=== PATIENT | female | born 1965 | race Caucasian/White ===

== ENCOUNTER 2018-05-13 10:18 | Emergency (ER) | payer OTHER ==
[~2018-05-13] VITALS: Ht 157.5 cm; Wt 56.7 kg
[~2018-05-13 10:18] MED LIST: ALBU3IS; ALBU90OI INH; Accuneb1.25 MG/3 NEB
[2018-05-13] MEDS ORDERED: CEPH500 PO (11:08)
[2018-05-13] MEDS ORDERED: Bactrim Ds Tab1 EACH PO (11:08)
[2018-05-13] MEDS ORDERED: HYDR1TAB94 PO (11:08)
== END 2018-05-13 11:15 | disposition home or self-care (01) ==
LOC: ER 10:18
DX: L02.415 Cutaneous abscess of right lower limb (principal)
CPT/HCPCS: 10061; 99282-25

== ENCOUNTER 2018-07-30 14:08 | Emergency (ER) | payer OTHER ==
[~2018-07-30] VITALS: Ht 157.5 cm; Wt 56.7 kg
[~2018-07-30 14:08] MED LIST changes: +Bactrim Ds Tab1 EACH PO; +CEPH500 PO; +HYDR1TAB94 PO
[2018-07-30] MEDS ORDERED: Bactrim Ds Tab1 EACH PO (15:46)
[2018-07-30] MEDS ORDERED: CEPH500 PO (15:46)
== END 2018-07-30 15:51 | disposition home or self-care (01) ==
LOC: ER 14:08
DX: K13.0 Diseases of lips (principal); L02.01 Cutaneous abscess of face; J45.909 Unspecified asthma, uncomplicated; F17.210 Nicotine dependence, cigarettes, uncomplicated; Z79.899 Other long term (current) drug therapy
CPT/HCPCS: 99283

== ENCOUNTER 2018-08-17 18:05 | Emergency (ER) | payer OTHER ==
[~2018-08-17] VITALS: Ht 157.5 cm; Wt 57.6 kg
[2018-08-17] MEDS ORDERED: CEPH500 PO (18:40)
[2018-08-17] MEDS ORDERED: Bactrim Ds Tab1 EACH PO (18:40)
== END 2018-08-17 18:57 | disposition home or self-care (01) ==
LOC: ER 18:05
DX: L03.115 Cellulitis of right lower limb (principal); J45.909 Unspecified asthma, uncomplicated; F17.210 Nicotine dependence, cigarettes, uncomplicated
CPT/HCPCS: 99283

== ENCOUNTER → 2018-08-18 | Outpatient (CLI) | payer OTHER | END | disposition home or self-care (01) | LOC: LAB 17:50 → LAB SHORT 17:50 | DX: L98.9 Disorder of the skin and subcutaneous tissue, unspecified (principal) | CPT/HCPCS: 87070; 87077; 87186; 87205 ==

== ENCOUNTER 2018-11-11 20:31 | Emergency (ER) | payer OTHER ==
[~2018-11-11] VITALS: Ht 157.5 cm; Wt 56.7 kg
[2018-11-11] MEDS ORDERED: CEPH500 PO (22:00)
[2018-11-11] MEDS ORDERED: Bactrim Ds Tab1 EACH PO (22:00)
== END 2018-11-11 22:10 | disposition home or self-care (01) ==
LOC: ER 20:31
DX: L02.416 Cutaneous abscess of left lower limb (principal); Z79.899 Other long term (current) drug therapy; J45.909 Unspecified asthma, uncomplicated; F17.210 Nicotine dependence, cigarettes, uncomplicated
CPT/HCPCS: 99282

== ENCOUNTER 2019-01-12 22:02 | Emergency (ER) | payer OTHER ==
[~2019-01-12] VITALS: Ht 157.5 cm; Wt 59.0 kg
[2019-01-12] MEDS ORDERED: Vibramycin100 MG PO (22:35)
== END 2019-01-12 22:43 | disposition home or self-care (01) ==
LOC: ER 22:02
DX: A49.02 Methicillin resistant Staphylococcus aureus infection, unspecified site (principal); L98.9 Disorder of the skin and subcutaneous tissue, unspecified; J45.909 Unspecified asthma, uncomplicated; F17.210 Nicotine dependence, cigarettes, uncomplicated
CPT/HCPCS: 99283

== ENCOUNTER 2019-02-03 16:08 | Emergency (ER) | payer OTHER ==
[~2019-02-03] VITALS: Ht 157.5 cm; Wt 56.7 kg
[~2019-02-03 16:08] MED LIST changes: +Vibramycin100 MG PO
[2019-02-03] MEDS ORDERED: Bactrim Ds Tab1 EACH PO (16:23)
== END 2019-02-03 16:23 | disposition home or self-care (01) ==
LOC: ER 16:08
DX: L08.9 Local infection of the skin and subcutaneous tissue, unspecified (principal); F17.210 Nicotine dependence, cigarettes, uncomplicated
CPT/HCPCS: 99282

== ENCOUNTER 2019-05-18 09:09 | Emergency (ER) | payer OTHER ==
[~2019-05-18] VITALS: Ht 157.5 cm; Wt 59.0 kg
[2019-05-18] MEDS ORDERED: TIOT18 INH (09:35)
[2019-05-18 09:56] LABS: BASOPHILS ABSOLUTE AUTO 0.12 K/mm3 (0.00-0.23); BASOPHILS PERCENT AUTO 2 % (0-2); EOSINOPHILS ABSOLUTE AUTO 0.82 K/mm3 (0.00-0.68); EOSINOPHILS PERCENT AUTO 11 % (0-6); Hematocrit 42.9 % (33.0-51.0); Hemoglobin 14.2 g/dL (11.5-16.0); IMMATURE GRAN ABSOLUTE AUTO 0.01 K/mm3 (0.00-0.10); IMMATURE GRAN PERCENT AUTO 0 % (0-1); LYMPHOCYTES ABSOLUTE AUTO 2.24 K/mm3 (0.84-5.20); LYMPHOCYTES PERCENT AUTO 29 % (21-46); MONOCYTES ABSOLUTE AUTO 0.45 K/mm3 (0.16-1.47); MONOCYTES PERCENT AUTO 6 % (4-13); Mean Corpuscular HGB 29.3 pg (26.0-34.0); Mean Corpuscular HGB Conc 33.1 g/dL (31.5-36.5); Mean Corpuscular Volume 89 fL (80-100); Mean Platelet Volume 9.4 fL (9.1-12.4); NEUTROPHILS ABSOLUTE AUTO 4.16 K/mm3 (1.96-9.15); NEUTROPHILS PERCENT AUTO 53 % (41-73); Platelet Count 435 K/mm3 (150-400); RDW Coefficient Variation 14.3 % (11.7-14.2); RDW Standard Deviation 45.8 fL (35.1-46.3); Red Blood Cell Count 4.85 M/mm3 (3.80-5.20)
[2019-05-18 10:20] LABS: Alanine Aminotransfer (ALT/SGP 24 U/L (12-78); Albumin, Blood 3.8 g/dL (3.4-5.0); Albumin/Globulin Ratio 0.9 (0.8-1.8); Alk Phos 101 U/L (50-136); Anion Gap 6 mmol/L (6-16); Aspartate Aminotrans (AST/SGOT 20 U/L (12-37); Bilirubin, Total 0.4 mg/dL (0.1-1.0); Blood Urea Nitrogen 11 mg/dL (8-24); Bun/Creatinine Ratio 16.2 (12.0-20.0); CO2, Blood 27 mmol/L (21-32); Calcium, Blood 9.1 mg/dL (8.5-10.1); Chloride, Blood 105 mmol/L (98-108); Creatinine, Blood 0.68 mg/dL (0.40-1.00); Globulin, Blood 4.1 g/dL (2.2-4.0); Glomerular Filtration Rate >60 (60-); Glucose, Blood 93 mg/dL (70-99); Sodium, Blood 138 mmol/L (136-145); Total Protein, Blood 7.9 g/dL (6.4-8.2); Troponin I <0.015 ng/mL (0.000-0.040)
[2019-05-18] MEDS ORDERED: Ventolin/Prove6.7 GM INH (10:58)
[2019-05-18] MEDS ORDERED: METPRE4DP PO (10:58)
== END 2019-05-18 11:24 | disposition home or self-care (01) ==
LOC: ER 09:09
PROVIDERS: Physician Assistant
DX: J45.901 Unspecified asthma with (acute) exacerbation (principal); F17.210 Nicotine dependence, cigarettes, uncomplicated
CPT/HCPCS: 36415; 71046; 80053; 84484; 85025; 93005; 93010; 94640; 96365-59; 96375-59; 99285-25; J2930; J3475

== ENCOUNTER 2019-10-22 13:13 | Emergency (ER) | payer OTHER ==
[~2019-10-22] VITALS: Ht 157.5 cm; Wt 63.5 kg
[~2019-10-22 13:13] MED LIST changes: +METPRE4DP PO; +TIOT18 INH; +Ventolin/Prove6.7 GM INH
[2019-10-22] MEDS ORDERED: IBUP400 (13:29)
[2019-10-22 15:16] LABS: BASOPHILS ABSOLUTE AUTO 0.13 K/mm3 (0.00-0.23); BASOPHILS PERCENT AUTO 1 % (0-2); EOSINOPHILS ABSOLUTE AUTO 1.29 K/mm3 (0.00-0.68); EOSINOPHILS PERCENT AUTO 12 % (0-6); Hematocrit 37.3 % (33.0-51.0); Hemoglobin 12.4 g/dL (11.5-16.0); IMMATURE GRAN ABSOLUTE AUTO 0.04 K/mm3 (0.00-0.10); IMMATURE GRAN PERCENT AUTO 0 % (0-1); LYMPHOCYTES ABSOLUTE AUTO 2.63 K/mm3 (0.84-5.20); LYMPHOCYTES PERCENT AUTO 24 % (21-46); MONOCYTES ABSOLUTE AUTO 0.69 K/mm3 (0.16-1.47); MONOCYTES PERCENT AUTO 6 % (4-13); Mean Corpuscular HGB 29.7 pg (26.0-34.0); Mean Corpuscular HGB Conc 33.2 g/dL (31.5-36.5); Mean Corpuscular Volume 89 fL (80-100); Mean Platelet Volume 9.7 fL (9.1-12.4); NEUTROPHILS ABSOLUTE AUTO 6.41 K/mm3 (1.96-9.15); NEUTROPHILS PERCENT AUTO 57 % (41-73); Platelet Count 452 K/mm3 (150-400); RDW Coefficient Variation 14.3 % (11.7-14.2); RDW Standard Deviation 46.6 fL (35.1-46.3); Red Blood Cell Count 4.17 M/mm3 (3.80-5.20); White Blood Cell Count 11.19 K/mm3 (4.00-11.30)
[2019-10-22 15:37] LABS: Anion Gap 4 mmol/L (6-16); Blood Urea Nitrogen 17 mg/dL (8-24); Bun/Creatinine Ratio 27.2 (12.0-20.0); CO2, Blood 25 mmol/L (21-32); Chloride, Blood 107 mmol/L (98-108); Creatinine, Blood 0.62 mg/dL (0.40-1.00); Glomerular Filtration Rate >60 (60-); Glucose, Blood 88 mg/dL (70-99); Potassium, Blood 3.8 mmol/L (3.5-5.5); Sodium, Blood 136 mmol/L (136-145)
== END 2019-10-22 19:13 | disposition home or self-care (01) ==
LOC: ER 13:13
PROVIDERS: Physician Assistant
DX: L03.113 Cellulitis of right upper limb (principal); B95.62 Methicillin resistant Staphylococcus aureus infection as the cause of diseases classified elsewhere; J45.909 Unspecified asthma, uncomplicated; Z79.899 Other long term (current) drug therapy; F17.210 Nicotine dependence, cigarettes, uncomplicated
CPT/HCPCS: 36415; 80048; 85025; 96365; 96366; 96375; 99283-25; J1885; J3370

== ENCOUNTER 2019-10-23 11:00 | Day surgery (SDC) | payer OTHER ==
[~2019-10-23 11:00] MED LIST changes: +IBUP400
== END 2019-10-23 15:40 | disposition home or self-care (01) ==
LOC: ATC 11:00
DX: L03.113 Cellulitis of right upper limb (principal); J45.909 Unspecified asthma, uncomplicated; F17.210 Nicotine dependence, cigarettes, uncomplicated; B95.62 Methicillin resistant Staphylococcus aureus infection as the cause of diseases classified elsewhere; Z79.899 Other long term (current) drug therapy
CPT/HCPCS: 96365; J3370

== ENCOUNTER 2019-10-24 01:25 | Day surgery (SDC) | payer OTHER | END 2019-10-24 17:36 | disposition home or self-care (01) | LOC: ATC 01:25 | DX: L03.113 Cellulitis of right upper limb (principal); J45.909 Unspecified asthma, uncomplicated; F17.210 Nicotine dependence, cigarettes, uncomplicated | CPT/HCPCS: 96365; J3370 ==

== ENCOUNTER 2019-10-25 00:49 | Day surgery (SDC) | payer OTHER | END 2019-10-25 22:42 | disposition home or self-care (01) | LOC: ATC 00:49 | DX: L03.113 Cellulitis of right upper limb (principal); J45.909 Unspecified asthma, uncomplicated; F17.210 Nicotine dependence, cigarettes, uncomplicated | CPT/HCPCS: 96365; J3370 ==

== ENCOUNTER 2019-10-26 00:12 | Day surgery (SDC) | payer OTHER | END 2019-10-26 09:04 | disposition home or self-care (01) | LOC: ATC 00:12 | DX: L03.113 Cellulitis of right upper limb (principal); B95.62 Methicillin resistant Staphylococcus aureus infection as the cause of diseases classified elsewhere; J45.909 Unspecified asthma, uncomplicated; F17.210 Nicotine dependence, cigarettes, uncomplicated | CPT/HCPCS: 96365; J3370 ==

== ENCOUNTER 2019-11-24 11:02 | Emergency (ER) | payer OTHER ==
[~2019-11-24] VITALS: Ht 157.5 cm; Wt 64.3 kg
[~2019-11-24 11:02] MED LIST changes: +Norco 5-325 Ta1 EACH PO; +Vistaril25 MG PO
[2019-11-26] MEDS ORDERED: IBUP200 PO (08:47)
[2019-12-27] MEDS ORDERED: METTREX2.5 PO (19:11)
[2019-12-27] MEDS ORDERED: Triamcinolone A15 GM TP (20:32)
== END 2019-11-24 13:19 | disposition home or self-care (01) ==
LOC: ER 11:02
DX: L08.9 Local infection of the skin and subcutaneous tissue, unspecified (principal); B95.62 Methicillin resistant Staphylococcus aureus infection as the cause of diseases classified elsewhere; F17.210 Nicotine dependence, cigarettes, uncomplicated
CPT/HCPCS: 96365; 99282-25; J3370

== ENCOUNTER 2020-01-01 18:03 | Emergency (ER) | payer OTHER ==
[~2020-01-01] VITALS: Ht 157.5 cm; Wt 63.5 kg
[~2020-01-01 18:03] MED LIST changes: +IBUP200 PO; +METTREX2.5 PO; +Triamcinolone A15 GM TP
[2020-01-02] MEDS ORDERED: Percocet 5-3251 EACH PO ×2 (12:53→12:56)
[2020-01-02] MEDS ORDERED: MUPIROCIN1 GM TOP (12:53)
[2020-01-02] MEDS ORDERED: CLOB.05TO TOP (12:53)
[2020-01-02] MEDS ORDERED: Bactrim Ds Tab1 EACH PO (12:53)
[2020-01-02] MEDS ORDERED: HIBICLENS120 ML EXT (12:53)
[2020-01-02] MEDS ORDERED: RIFA300 PO (12:53)
== END 2020-01-01 19:06 | disposition left against medical advice (07) ==
LOC: ER 18:03
DX: Z53.21 Procedure and treatment not carried out due to patient leaving prior to being seen by health care provider (principal)

== ENCOUNTER 2020-03-20 20:33 | Emergency (ER) | payer OTHER ==
[~2020-03-20] VITALS: Ht 157.5 cm; Wt 64.0 kg
[~2020-03-20 20:33] MED LIST changes: +CLOB.05TO TOP; +HIBICLENS120 ML EXT; +MUPIROCIN1 GM TOP; +Percocet 5-3251 EACH PO; +RIFA300 PO
[2020-03-21 04:12] LABS: BASOPHILS ABSOLUTE AUTO 0.09 K/mm3 (0.00-0.23); BASOPHILS PERCENT AUTO 1 % (0-2); EOSINOPHILS ABSOLUTE AUTO 0.76 K/mm3 (0.00-0.68); EOSINOPHILS PERCENT AUTO 5 % (0-6); Hematocrit 37.3 % (33.0-51.0); Hemoglobin 12.2 g/dL (11.5-16.0); IMMATURE GRAN ABSOLUTE AUTO 0.05 K/mm3 (0.00-0.10); IMMATURE GRAN PERCENT AUTO 0 % (0-1); LYMPHOCYTES ABSOLUTE AUTO 2.05 K/mm3 (0.84-5.20); LYMPHOCYTES PERCENT AUTO 12 % (21-46); MONOCYTES ABSOLUTE AUTO 0.95 K/mm3 (0.16-1.47); MONOCYTES PERCENT AUTO 6 % (4-13); Mean Corpuscular HGB Conc 32.7 g/dL (31.5-36.5); Mean Corpuscular Volume 89 fL (80-100); Mean Platelet Volume 9.4 fL (9.1-12.4); NEUTROPHILS ABSOLUTE AUTO 12.58 K/mm3 (1.96-9.15); NEUTROPHILS PERCENT AUTO 76 % (41-73); Platelet Count 433 K/mm3 (150-400); RDW Coefficient Variation 15.7 % (11.7-14.2); RDW Standard Deviation 51.5 fL (35.1-46.3); White Blood Cell Count 16.48 K/mm3 (4.00-11.30)
[2020-03-21 04:30] LABS: Alanine Aminotransfer (ALT/SGP 19 U/L (12-78); Albumin, Blood 3.7 g/dL (3.4-5.0); Albumin/Globulin Ratio 0.9 (0.8-1.8); Alk Phos 113 U/L (50-136); Anion Gap 4 mmol/L (6-16); Aspartate Aminotrans (AST/SGOT 18 U/L (12-37); Bilirubin, Total 0.4 mg/dL (0.1-1.0); Blood Urea Nitrogen 14 mg/dL (8-24); CO2, Blood 27 mmol/L (21-32); Calcium, Blood 9.3 mg/dL (8.5-10.1); Chloride, Blood 110 mmol/L (98-108); Creatinine, Blood 0.67 mg/dL (0.40-1.00); Globulin, Blood 4.2 g/dL (2.2-4.0); Glomerular Filtration Rate >60 (60-); Glucose, Blood 104 mg/dL (70-99); Potassium, Blood 3.9 mmol/L (3.5-5.5); Sodium, Blood 141 mmol/L (136-145); Total Protein, Blood 7.9 g/dL (6.4-8.2)
[2020-03-21] MEDS ORDERED: ALBU90OI INH (05:35)
[2020-03-21] MEDS ORDERED: Prednisone20 MG PO (05:35)
[2020-03-21 06:31] LABS: Adenovirus Not Detected (NOT DETECT); Bordetella pertussis Not Detected (NOT DETECT); Chlamydophila pneumoniae Not Detected (NOT DETECT); Coronavirus 229E Not Detected (NOT DETECT); Coronavirus HKU1 Not Detected (NOT DETECT); Coronavirus NL63 Not Detected (NOT DETECT); Coronavirus OC43 Not Detected (NOT DETECT); Human Metapneumovirus Not Detected (NOT DETECT); Human Rhinovirus/Enterovirus Not Detected (NOT DETECT); Influenza A/2009-H1 Not Detected (NOT DETECT); Influenza A/H1 Not Detected (NOT DETECT); Influenza A/H3 Not Detected (NOT DETECT); Influenza B Not Detected (NOT DETECT); Mycoplasma pneumoniae Not Detected (NOT DETECT); Parainfluenza Virus 1 Not Detected (NOT DETECT); Parainfluenza Virus 2 Not Detected (NOT DETECT); Parainfluenza Virus 3 Not Detected (NOT DETECT); Parainfluenza Virus 4 Not Detected (NOT DETECT); Respiratory Syncytial Virus Not Detected (NOT DETECT); SARS-Cov-2 (COVID-19), BioFire Not Detected (NOT DETECT)
== END 2020-03-21 05:47 | disposition home or self-care (01) ==
LOC: ER 20:33
PROVIDERS: Emergency Medicine
DX: J45.901 Unspecified asthma with (acute) exacerbation (principal); J06.9 Acute upper respiratory infection, unspecified; F17.210 Nicotine dependence, cigarettes, uncomplicated; Z20.828 Contact with and (suspected) exposure to other viral communicable diseases; Z79.899 Other long term (current) drug therapy
CPT/HCPCS: 0202U; 36415; 71046; 80053; 85025; 93005; 93010; 94640; 96374; 99285-25; J2930

== ENCOUNTER 2020-11-12 23:01 | Emergency (ER) | payer OTHER ==
[~2020-11-12] VITALS: Ht 157.5 cm; Wt 61.2 kg
[~2020-11-12 23:01] MED LIST changes: +Prednisone20 MG PO
[2020-11-12] MEDS ORDERED: PRED10 PO (23:55)
== END 2020-11-13 00:03 | disposition home or self-care (01) ==
LOC: ER 23:01
DX: L30.1 Dyshidrosis [pompholyx] (principal); F17.210 Nicotine dependence, cigarettes, uncomplicated; Z79.899 Other long term (current) drug therapy; Z79.52 Long term (current) use of systemic steroids
CPT/HCPCS: 99282

== ENCOUNTER 2020-12-01 20:37 | Emergency (ER) | payer OTHER ==
[~2020-12-01] VITALS: Ht 157.5 cm; Wt 62.6 kg
[~2020-12-01 20:37] MED LIST changes: +PRED10 PO
[2020-12-01] MEDS ORDERED: Bactrim Ds Tab1 EACH PO (21:16)
[2020-12-01] MEDS ORDERED: IBU600 M1 PO (21:18)
== END 2020-12-01 21:44 | disposition home or self-care (01) ==
LOC: ER 20:37
DX: L08.9 Local infection of the skin and subcutaneous tissue, unspecified (principal); B95.62 Methicillin resistant Staphylococcus aureus infection as the cause of diseases classified elsewhere; F17.210 Nicotine dependence, cigarettes, uncomplicated
CPT/HCPCS: 99282; A9270

== ENCOUNTER → 2021-05-08 | Outpatient (CLI) | payer OTHER ==
[~2021-05-08] MED LIST changes: +IBU600 M1 PO
[2021-05-09 15:08] LABS: HPV 16 Negative (Negative); HPV 18 Negative (Negative); HPV OTHER HR TYPES Negative (Negative)
== END | disposition home or self-care (01) ==
LOC: LAB SHORT 14:15
PROVIDERS: Physician Assistant
DX: Z01.419 Encounter for gynecological examination (general) (routine) without abnormal findings (principal)
CPT/HCPCS: 87624; G0123

== ENCOUNTER 2022-02-26 13:29 | Emergency (ER) | payer OTHER ==
[~2022-02-26] VITALS: Ht 157.5 cm; Wt 59.0 kg
[~2022-02-26 13:29] MED LIST changes: +DELTASONE20 MG PO; +OCUFLOX510 BOTHEARS; +Zyvox600 MG PO
[2022-02-26] MEDS ORDERED: LINE600 PO (15:04)
== END 2022-02-26 15:08 | disposition home or self-care (01) ==
LOC: ER 13:29
DX: L02.214 Cutaneous abscess of groin (principal); L02.416 Cutaneous abscess of left lower limb; L02.01 Cutaneous abscess of face; I10 Essential (primary) hypertension; J45.909 Unspecified asthma, uncomplicated; F17.210 Nicotine dependence, cigarettes, uncomplicated; Z79.899 Other long term (current) drug therapy
CPT/HCPCS: 99282

== ENCOUNTER 2022-05-27 11:04 | Emergency (ER) | payer OTHER ==
[~2022-05-27] VITALS: Ht 157.5 cm; Wt 59.0 kg
[~2022-05-27 11:04] MED LIST changes: +LINE600 PO
[2022-05-27] MEDS ORDERED: Ventolin/Prove6.7 GM (11:33)
[2022-05-27] MEDS ORDERED: HYDROXYZ HCL (11:33)
[2022-05-27] MEDS ORDERED: LISI20 PO (11:33)
[2022-05-27] MEDS ORDERED: Bactrim Ds Tab1 EACH PO (12:40)
== END 2022-05-27 13:00 | disposition home or self-care (01) ==
LOC: ER 11:04
DX: M79.644 Pain in right finger(s) (principal); B95.62 Methicillin resistant Staphylococcus aureus infection as the cause of diseases classified elsewhere; Z88.8 Allergy status to other drugs, medicaments and biological substances; Z79.899 Other long term (current) drug therapy; Z87.891 Personal history of nicotine dependence
CPT/HCPCS: 99283

== ENCOUNTER 2022-06-05 19:49 | Emergency (ER) | payer OTHER ==
[~2022-06-05] VITALS: Ht 157.5 cm; Wt 59.0 kg
[~2022-06-05 19:49] MED LIST changes: +HYDROXYZ HCL; +LISI20 PO; +Ventolin/Prove6.7 GM
[2022-06-05] MEDS ORDERED: DELTASONE20 MG PO (21:16)
== END 2022-06-05 21:46 | disposition home or self-care (01) ==
LOC: ER 19:49
DX: L40.9 Psoriasis, unspecified (principal); J45.909 Unspecified asthma, uncomplicated; I10 Essential (primary) hypertension; F17.210 Nicotine dependence, cigarettes, uncomplicated; Z88.8 Allergy status to other drugs, medicaments and biological substances; Z79.899 Other long term (current) drug therapy; Z79.52 Long term (current) use of systemic steroids
CPT/HCPCS: 96372; 99282-25; J1885; J7512

== ENCOUNTER 2022-08-06 22:27 | Emergency (ER) | payer OTHER ==
[~2022-08-06] VITALS: Ht 157.5 cm; Wt 59.0 kg
[2022-08-06] MEDS ORDERED: Bactrim Ds Tab1 EACH PO (23:17)
[2022-08-06] MEDS ORDERED: LINE600 PO (23:17)
== END 2022-08-06 23:36 | disposition home or self-care (01) ==
LOC: ER 22:27
DX: L02.01 Cutaneous abscess of face (principal); B95.62 Methicillin resistant Staphylococcus aureus infection as the cause of diseases classified elsewhere; F17.200 Nicotine dependence, unspecified, uncomplicated; Z79.52 Long term (current) use of systemic steroids; Z88.8 Allergy status to other drugs, medicaments and biological substances
CPT/HCPCS: 99282; A9270

== ENCOUNTER 2022-10-17 15:36 | Emergency (ER) | payer OTHER ==
[~2022-10-17] VITALS: Ht 157.5 cm; Wt 59.0 kg
[2022-10-17 15:42] VITALS: BP 149/74
[2022-10-17] MEDS ORDERED: CEPH500 PO (18:27)
[2022-10-17] MEDS ORDERED: DOXY100 PO (18:27)
== END 2022-10-17 18:42 | disposition home or self-care (01) ==
LOC: ER 15:36
DX: L02.511 Cutaneous abscess of right hand (principal); L03.113 Cellulitis of right upper limb; Z88.8 Allergy status to other drugs, medicaments and biological substances; Z79.899 Other long term (current) drug therapy; Z79.52 Long term (current) use of systemic steroids; J45.909 Unspecified asthma, uncomplicated; I10 Essential (primary) hypertension; F17.210 Nicotine dependence, cigarettes, uncomplicated
CPT/HCPCS: 99283; A9270

== ENCOUNTER → 2023-01-01 | Outpatient (CLI) | payer OTHER ==
[~2023-01-01] MED LIST changes: +DOXY100 PO
== END | disposition home or self-care (01) ==
LOC: LAB 11:35 → LAB SHORT 11:35
DX: L08.0 Pyoderma (principal)
CPT/HCPCS: 87070; 87077; 87147; 87186; 87205

== ENCOUNTER 2024-04-07 12:16 | Day surgery (SDC) | payer OTHER ==
[~2024-04-07] VITALS: Ht 157.5 cm; Wt 57.9 kg
[~2024-04-07 12:16] MED LIST changes: +AMOCLA875 PO; +DUPIXENT P300 MG/2 M SC; +Lactated Ringer's 1,000 ML IV ONE; +TRAM50 PO; +VISBIOME 112.51 EACH PO; +propofoL 50 ML IV ONE
[2024-04-07] MEDS ORDERED: Lactated Ringer's 1,000 ML IV ONE (13:26)
[2024-04-07 15:04] VITALS: BP 148/95
== END 2024-04-07 15:08 | disposition home or self-care (01) ==
LOC: ORSCSDS 12:16
PROVIDERS: Surgery
PROC: 0DBH8ZX Excision of Cecum, Via Natural or Artificial Opening Endoscopic, Diagnostic (ICD-10-PCS; principal; 2024-04-07 14:15)
PROC: 0DBN8ZX Excision of Sigmoid Colon, Via Natural or Artificial Opening Endoscopic, Diagnostic (ICD-10-PCS; principal; 2024-04-07 14:15)
DX: Z12.11 Encounter for screening for malignant neoplasm of colon (principal); K57.32 Diverticulitis of large intestine without perforation or abscess without bleeding; D12.0 Benign neoplasm of cecum; K63.5 Polyp of colon; J45.909 Unspecified asthma, uncomplicated; I10 Essential (primary) hypertension; Z79.899 Other long term (current) drug therapy
CPT/HCPCS: 88305; J2704; J7120

== ENCOUNTER 2024-07-18 16:58 | Emergency (ER) | payer OTHER ==
[~2024-07-18] VITALS: Ht 157.5 cm; Wt 59.0 kg
[~2024-07-18 16:58] MED LIST changes: -Lactated Ringer's 1,000 ML IV ONE; -propofoL 50 ML IV ONE
[2024-07-18 17:04] VITALS: BP 168/125
[2024-07-18] MEDS ORDERED: Lisinopril2.5 MG PO (17:14)
[2024-07-18] MEDS ORDERED: VALACYCLOVIR1000 M1 PO (18:14)
[2024-07-18] MEDS ORDERED: ValACYClovir HCL 500 MG Tab PO ONE (18:15)
[2024-07-18] MEDS ORDERED: Lidocaine HCl 4% Cream 5 GM TOP ONE (18:15)
[2024-07-18] MEDS ORDERED: ASPERFLEX LIDOC15 GM EXT (18:16)
== END 2024-07-18 18:59 | disposition home or self-care (01) ==
LOC: ER 16:58
DX: B02.9 Zoster without complications (principal); Z88.8 Allergy status to other drugs, medicaments and biological substances; Z79.899 Other long term (current) drug therapy; J45.909 Unspecified asthma, uncomplicated
CPT/HCPCS: 99283; A9270